=== PATIENT | female | born 1945 | race Caucasian/White ===

== ENCOUNTER 2016-06-02 19:49 | Inpatient (IN) | payer MEDICARE, OTHER ==
[2016-06-02 22:42] LABS: BASOPHILS 0.2 % (0-2); EOSINOPHILS 0.5 % (0-7); HEMOGLOBIN 12.4 g/dL (12-16); IMMATURE GRANULOCYTES 0.7 % (0-5); LYMPHOCYTES 9.2 % (15-50); MCH 29.7 pg (26.0-34.0); MCHC 32.6 g/dL (31.0-37.0); MCV 91.1 fL (80.0-100.0); MEAN PLATELET VOLUME 9.5 fL (7.4-10.4); MONOCYTES 5.4 % (2-11); PLATELET COUNT 231 10x3/uL (130-400); RBC 4.17 10x6/uL (4.00-5.40); RDW 13.3 % (11.5-14.5); WBC 15.1 10x3/uL (4.8-10.8)
[2016-06-02 22:48] LABS: INR 0.95 (0.85-1.17); PROTIME 12.5 SECONDS (11.6-15.0)
[2016-06-02 23:04] LABS: ALBUMIN 3.6 g/dL (3.4-5.0); ANION GAP 14.5 mmol/L (8-16); BILIRUBIN - TOTAL 0.23 mg/dL (0.2-1.3); CALCIUM 8.9 mg/dL (8.5-10.1); CARBON DIOXIDE 27.2 mmol/L (21.0-32.0); CREATININE - SERUM 1.4 mg/dL (0.6-1.3); POTASSIUM - SERUM 4.7 mmol/L (3.5-5.1); PROTEIN - SERUM 6.8 g/dL (6.4-8.2)
[2016-06-03] MEDS ORDERED: GLUCOPHAGE500 MG PO (12:39)
[2016-06-03] MEDS ORDERED: LISINOPRIL10 MG PO (12:39)
[2016-06-03] MEDS ORDERED: SINGULAIR10 MG PO (12:40)
[2016-06-03 12:52] LABS: BASOPHILS 0.3 % (0-2); EOSINOPHILS 1.9 % (0-7); HEMATOCRIT 37.9 % (36.0-48.0); HEMOGLOBIN 12.3 g/dL (12-16); IMMATURE GRANULOCYTES 0.7 % (0-5); LYMPHOCYTES 9.3 % (15-50); MCH 29.9 pg (26.0-34.0); MCHC 32.5 g/dL (31.0-37.0); MEAN PLATELET VOLUME 9.7 fL (7.4-10.4); MONOCYTES 8.8 % (2-11); PLATELET COUNT 212 10x3/uL (130-400); RBC 4.12 10x6/uL (4.00-5.40); RDW 13.3 % (11.5-14.5); WBC 11.8 10x3/uL (4.8-10.8)
[2016-06-03 13:04] LABS: ANION GAP 13.6 mmol/L (8-16); CALCIUM 8.5 mg/dL (8.5-10.1); CARBON DIOXIDE 26.2 mmol/L (21.0-32.0); POTASSIUM - SERUM 4.8 mmol/L (3.5-5.1)
[2016-06-04 00:41] LABS: APPEARANCE CLEAR (CLEAR); BILIRUBIN NEGATIVE (NEGATIVE); COLOR YELLOW (YELLOW); GLUCOSE NEGATIVE (NEGATIVE); KETONE NEGATIVE (NEGATIVE); LEUKOCYTE ESTERASE NEGATIVE (NEGATIVE); NITRITE NEGATIVE (NEGATIVE); PROTEIN NEGATIVE (NEGATIVE); UROBILINOGEN NORMAL (NORMAL)
[2016-06-04] MEDS ORDERED: HYDROCODONE-APA1 TAB PO (09:02)
== END 2016-06-04 14:07 | disposition home or self-care (01) | DRG 512 ==
LOC: D.ER 19:49 → D.MS 21:37
PROVIDERS: Nurse Practitioner Family; ADMIT Orthopaedic Surgery Sports Medicine
PROC: 0PSH04Z Reposition Right Radius with Internal Fixation Device, Open Approach (ICD-10-PCS; principal; 2016-06-04)
DX: S52.531A Colles' fracture of right radius, initial encounter for closed fracture (principal); W01.198A Fall on same level from slipping, tripping and stumbling with subsequent striking against other object, initial encounter; I25.10 Atherosclerotic heart disease of native coronary artery without angina pectoris; I10 Essential (primary) hypertension; J45.909 Unspecified asthma, uncomplicated

== ENCOUNTER 2016-09-27 16:37 | Inpatient (IN) | payer MEDICARE, OTHER ==
[~2016-09-27] VITALS: Ht 157.5 cm; Wt 68.0 kg
[~2016-09-27 16:37] MED LIST: GLUCOPHAGE500 MG PO; HYDROCODONE-APA1 TAB PO; LISINOPRIL10 MG PO; SINGULAIR10 MG PO
--- NOTE | 2016-09-27 17:00 | NUR ---
RECEIVED TO ROOM 2222 FROM MD OFFICE. CALL LIGHT IN REACH.
[2016-09-27 17:27] VITALS: BP 120/77
[2016-09-27 17:32] LABS: BASOPHILS 0.2 % (0-2); EOSINOPHILS 0.5 % (0-7); HEMATOCRIT 41.3 % (36.0-48.0); HEMOGLOBIN 13.6 g/dL (12-16); IMMATURE GRANULOCYTES 0.5 % (0-5); LYMPHOCYTES 11.9 % (15-50); MCH 29.1 pg (26.0-34.0); MCHC 32.9 g/dL (31.0-37.0); MCV 88.4 fL (80.0-100.0); MEAN PLATELET VOLUME 9.1 fL (7.4-10.4); MONOCYTES 8.2 % (2-11); NEUTROPHILS 78.7 % (40-80); RBC 4.67 10x6/uL (4.00-5.40); RDW 13.3 % (11.5-14.5); WBC 13.3 10x3/uL (4.8-10.8)
[2016-09-27 17:40] LABS: PLATELET COUNT 275 10x3/uL (130-400)
--- NOTE | 2016-09-27 18:14 | NUR ---
IV SITED TO LEFT WRIST WITH 22 GA X1 STICK. FLAGYL AND IV FLUIDS INITIATED. REFUSED SCDs AFTER EXPLAINING IMPORTANCE. URINE SAMPLE COLLECTED AND SENT TO LAB. CALL LIGHT IN REACH. WILL CONTINUE WITH PLAN OF CARE.
[2016-09-27 18:31] LABS: ALBUMIN 3.7 g/dL (3.4-5.0); BILIRUBIN - DIRECT 0.12 mg/dL (0.00-0.30); BILIRUBIN - INDIRECT 0.23 mg/dL (0.00-1.00); BILIRUBIN - TOTAL 0.35 mg/dL (0.2-1.3); CARBON DIOXIDE 23.6 mmol/L (21.0-32.0); POTASSIUM - SERUM 4.6 mmol/L (3.5-5.1); PROTEIN - SERUM 7.5 g/dL (6.4-8.2)
[2016-09-27 19:00] VITALS: BP 140/62
[2016-09-27 19:13] LABS: APPEARANCE CLEAR (CLEAR); BILIRUBIN NEGATIVE (NEGATIVE); COLOR YELLOW (YELLOW); GLUCOSE NEGATIVE (NEGATIVE); KETONE MODERATE mg/dL (NEGATIVE); LEUKOCYTE ESTERASE NEGATIVE (NEGATIVE); NITRITE NEGATIVE (NEGATIVE); PROTEIN NEGATIVE (NEGATIVE); SPECIFIC GRAVITY 1.015 (1.005-1.020); UROBILINOGEN NORMAL (NORMAL)
--- NOTE | 2016-09-27 20:00 | NUR ---
ASSESSMENT PER FLOWSHEET. UP WITH HELP TO BR VOIDS WELL. IV PATENT LEFT WRIST OF D51/2NS INFUSING AT 30CC'S/HR SITE CLEAR. PT REFUSES SCD'S. SR UP X2 CALL LIGHT WITHIN REACH.
--- NOTE | 2016-09-27 20:30 | NUR ---
MEDS GIVEN PER MAR.
--- NOTE | 2016-09-27 22:15 | NUR ---
UP IN WC TO RADIOLOGY FOR XRAYS.
--- NOTE | 2016-09-27 23:00 | NUR ---
RETURNED TO ROOM. UP AD HELENA IN ROOM.
[2016-09-28] VITALS: BP 176/60
--- NOTE | 2016-09-28 00:10 | NUR ---
EYES CLOSED RESPIRATIONS WITH EASE AND UNLABORED.
--- NOTE | 2016-09-28 02:45 | NUR ---
MEDS GIVEN PER MAR. PATIENT SLEEPING DENIES NEEDS AROUSES EASILY TO VERBAL STIMULI.
--- NOTE | 2016-09-28 04:35 | NUR ---
EYES CLOSED RESPIRATIONS WITH EASE AND UNLABORED.
[2016-09-28 06:03] LABS: BASOPHILS 0.5 % (0-2); EOSINOPHILS 2.4 % (0-7); HEMATOCRIT 36.5 % (36.0-48.0); IMMATURE GRANULOCYTES 0.8 % (0-5); MCHC 32.9 g/dL (31.0-37.0); MCV 88.2 fL (80.0-100.0); MEAN PLATELET VOLUME 9.2 fL (7.4-10.4); MONOCYTES 10.4 % (2-11); NEUTROPHILS 62.9 % (40-80); PLATELET COUNT 230 10x3/uL (130-400); RBC 4.14 10x6/uL (4.00-5.40); RDW 13.4 % (11.5-14.5)
[2016-09-28 06:12] LABS: WBC 6.3 10x3/uL (4.8-10.8)
--- NOTE | 2016-09-28 06:13 | NUR ---
[id number]. NO COVERAGE NEEDED.
[2016-09-28 06:40] LABS: ANION GAP 11.5 mmol/L (8-16); CALCIUM 8.8 mg/dL (8.5-10.1); CARBON DIOXIDE 27.7 mmol/L (21.0-32.0); CREATININE - SERUM 0.9 mg/dL (0.6-1.3); POTASSIUM - SERUM 4.2 mmol/L (3.5-5.1)
--- NOTE | 2016-09-28 07:30 | NUR ---
REPORT RECEIVED, ASSUMED CARE OF PT. UP IN BED. NO COMPLAINTS AT THIS TIME. L WRIST IV, DRSG CLEAN, DRY AND INTACT, FLUIDS ORDERED. BED IN LOWEST POSITION, SIDE RAILS UP X 2, CALL LIGHT WITHIN REACH.
--- NOTE | 2016-09-28 09:37 | NUR ---
Patient Name: MICAH WALLACE Admission Status: Urgent Accout number: [id number] Admission Date: 09-27-2016 : 1945 Admission Diagnosis: Attending: LISA RICE Current LOS: 1 Anticipated DC Date: 09-29-2016 Planned Disposition: Home Primary Insurance: MEDICARE A & B Discharge Planning Comments: CM MET WITH PATIENT REGARDING D/C NEEDS AND PLANS. PATIENT STATED SHE LIVES ALONE AND WILL DRIVE HERSELF HOME AT DISCHARGE. PATIENT STATED SHE HAS ONE FLIGHT OF STAIRS IN HER HOME AND NO STEPS TO ENTER. PATIENT IS INDEPENDENT WITH HER CARE AND HAS A GLUCOMETER AT HOME AND CHECKS SUGAR WEEKLY. PATIENTS PCP IS DR. CRENSHAW AND PHARMACY IS [facility] ON [address]. PATIENT DOES NOT WANT HOME HEALTH AT DISCHARGE. CM WILL CONTINUE TO FOLLOW PATIENT WITH D/C NEEDS AND PLANS. PCP DR. FLOWER [facility] ON [address] [phone] JUANA ISAAC (DAUGHTER) [phone] Leather Repairer: Nava Moyer Is the patient Alert and Oriented? Yes 0 * How many steps to enter\exit or inside your home? 1 FLIGHT 0 * PCP DR. CRENSHAW 0 * Pharmacy [facility] ON [address] 0 * Preadmission Environment Home Alone 0 * ADLs Independent 0 * Equipment None 0 * List name and contact numbers for known caregivers / representatives who currently or will assist patient after discharge: JAUNA ISAAC (DAUGHTER) [phone] 0 * Community resources currently utilized None 0 * Additional services required to return to the preadmission environment? Yes 0 * Can the patient safely return to the preadmission environment? Yes 0 * Has this patient been hospitalized within the prior 30 days at any hospital? No 0 Grand Total: 0
[2016-09-28 09:49] VITALS: BP 130/64
[2016-09-28 12:13] VITALS: Ht 157.5 cm; Wt 68.0 kg
--- NOTE | 2016-09-28 12:37 | NUR ---
PT RESTING IN ROOM, NO NEEDS VOICED AT THIS TIME. BED IN LOWEST POSITION, SIDE RAILS UP X 2, CALL LIGHT WITHIN REACH.
[2016-09-28 14:21] VITALS: BP 117/60
[2016-09-28 17:01] VITALS: BP 114/65
--- NOTE | 2016-09-28 19:28 | NUR ---
PT UP TO CHAIR. NO COMPLAINTS AT THIS TIME. NO SIGNS OF ACUTE DISTRESS.
[2016-09-28 20:00] VITALS: BP 143/73
--- NOTE | 2016-09-28 23:15 | NUR ---
PATIENT SLEEPING COMFORTABLY. NO NEEDS NOTED AT THIS TIME. SHE HAS ASKED FOR A FEW APPLE JUICES TO DRINK SINCE SHE WAS CLEARED FOR A CLEAR LIQUID DIET.
[2016-09-29 04:00] VITALS: BP 104/50
[2016-09-29 07:13] LABS: HEMATOCRIT 36.5 % (36.0-48.0); HEMOGLOBIN 11.9 g/dL (12-16); LYMPHOCYTES 19.9 % (15-50); MCH 28.3 pg (26.0-34.0); MCHC 32.6 g/dL (31.0-37.0); MCV 86.9 fL (80.0-100.0); MEAN PLATELET VOLUME 8.8 fL (7.4-10.4); NEUTROPHILS 68.8 % (40-80); PLATELET COUNT 241 10x3/uL (130-400); RDW 12.9 % (11.5-14.5); WBC 6.2 10x3/uL (4.8-10.8)
--- NOTE | 2016-09-29 07:25 | NUR ---
PATIENT RECEIVED ALERT IN HIGH GUTIÉRREZ POSITION. RESPIRATIONS EVEN AND UNLABORED. DENIES PAIN AND OTHER NEEDS. SIDE RAILS UP X2. BED IN LOW POSITION. CALL LIGHT IN REACH.
[2016-09-29 07:47] LABS: ALBUMIN 2.9 g/dL (3.4-5.0); ANION GAP 13.1 mmol/L (8-16); BILIRUBIN - TOTAL 0.3 mg/dL (0.2-1.3); CALCIUM 8.6 mg/dL (8.5-10.1); CREATININE - SERUM 0.9 mg/dL (0.6-1.3); POTASSIUM - SERUM 4.1 mmol/L (3.5-5.1); PROTEIN - SERUM 6.6 g/dL (6.4-8.2)
--- NOTE | 2016-09-29 09:05 | NUR ---
ALERT IN BED. NO SIGNS OF DISTRESS NOTED. IV TO LEFT WRIST LEAKING AND IS RED AND TENDER. IV D/C WITH CATH TIP INTACT. SCHEDULED ORAL MEDICATION ADMINISTERED. DENIES NEEDS. SIDE RAILS UP X1. BED IN LOW POSITION. CALL LIGHT IN REACH.
[2016-09-29 09:06] VITALS: BP 118/64
--- NOTE | 2016-09-29 09:45 | NUR ---
22 GAUGE IV SITED TO LEFT FOREARM X1 ATTEMPT. FLUSHES EASY WITH BRISK BLOOD RETURN PRESENT. SECURED WITH TAPE AND TEGADERM. IVF INFUSING WITHOUT DIFFICULTY. WELL TOLERATED.
--- NOTE | 2016-09-29 11:32 | NUR ---
PATIENT SITTING UP IN CHAIR AT BEDSIDE. NO SIGNS OF DISTRESS NOTED. ACCU CHECK 154. REFUSES INSULIN. DENIES NEEDS. CALL LIGHT IN REACH.
[2016-09-29] MEDS ORDERED: MULTI-DAY VITAM1 TAB PO (13:28)
[2016-09-29] MEDS ORDERED: FLAGYL500 MG PO (13:32)
[2016-09-29] MEDS ORDERED: VIBRAMYCIN 100100 MG PO (13:33)
--- NOTE | 2016-09-29 13:59 | NUR ---
CM REASSESSMENT NOTE: PATIENT IS DISCHARGING HOME TODAY. STATED NO HOME HEALTH AND HAD NO OTHER NEEDS FOR DISCHARGE
[2016-09-29 14:13] VITALS: BP 114/58
--- NOTE | 2016-09-29 15:15 | NUR ---
IV TO LEFT FOREARM D/C WITH CATH TIP INTACT. SITE COVERED WITH GAUZE AND BANDAID. D/C TEACHING PROVIDED. STATES UNDERSTANDING. DENIES QUESTIONS.
--- NOTE | 2016-09-29 15:21 | NUR ---
PATIENT D/C HOME WITH FRIEND. TRANSFERRED DOWNSTAIRS VIA WHEELCHAIR WITH VOLUNTEER.
== END 2016-09-29 15:23 | disposition home or self-care (01) | DRG 392 ==
LOC: D.MS 16:37
PROVIDERS: Family Medicine; ADMIT Emergency Medicine
DX: K57.32 Diverticulitis of large intestine without perforation or abscess without bleeding (principal); K80.20 Calculus of gallbladder without cholecystitis without obstruction; E66.9 Obesity, unspecified; E11.9 Type 2 diabetes mellitus without complications; I10 Essential (primary) hypertension; Z87.891 Personal history of nicotine dependence